=== PATIENT | male | born 1990 | race Two or more races ===

== ENCOUNTER 2019-05-16 23:13 | Emergency (ER) | payer SELFPAY ==
[~2019-05-16] VITALS: Ht 182.9 cm; Wt 80.7 kg
[2019-05-16 23:32] VITALS: BP 135/87
--- NOTE | 2019-05-16 23:32 | NUR ---
ED Nurse Note: Patient walked in due to midsternal chest pain since yesterday. As per patient, he feels pressure on his chest taht is non radiating. No stated medical history. Alert and oriented x4, verbally responsive. Breathing even and unlabored. Afebrile. VSS. S/O at bedside.
[2019-05-17] MEDS ORDERED: IBUPROFEN600 MG ORAL (00:11)
--- NOTE | 2019-05-17 00:11 | Emergency Room Report ---
History of Present Illness General Chief Complaint: Chest Pain Source: Patient Present Illness HPI This a 29-year-old male with no past medical history. He presents with complaint of chest pain. Onset for last 2 to 3 days. He had some mild pain and then went to the gym and worked out and got worse. Worse with the move. Is better now but still has some slight tenderness along the sternum area. No fever chills. Worse with movement. No cough or congestion. No fever chills but no exertional component. No diaphoresis. Allergies: Coded Allergies: Dust (Verified Allergy, Unknown, 05/16/19) Uncoded Allergies: GRASS (Allergy, Unknown, 05/16/19) Patient History Past Medical History: none, see triage record, old chart reviewed Past Surgical History: none Pertinent Family History: none Social History: Denies: smoking Immunizations: other Reviewed Nursing Documentation: PMH: Agreed; PSxH: Agreed Nursing Documentation-PMH Past Medical History: No Stated History Review of Systems Eye: Denies: eye pain, blurred vision ENT: Denies: ear pain, nose congestion, throat swelling Respiratory: Denies: cough, shortness of breath Cardiovascular: Reports: chest pain; Denies: palpitations Gastrointestinal: Denies: abdominal pain, diarrhea, nausea, vomiting Musculoskeletal: Denies: back pain, joint pain Skin: Denies: rash Neurological: Denies: headache, numbness Endocrine: Denies: increased thirst, increased urine Hematologic/Lymphatic: Denies: easy bruising All Other Systems: negative except mentioned in HPI Physical Exam Vital Signs Date Time Temp Pulse Resp B/P (MAP) Pulse Ox O2 Delivery O2 Flow Rate FiO2 05/16/19 23:30 98.2 81 18 135/87 (103) 100 Room Air Vitals normal Sp02 EP Interpretation: reviewed, normal General Appearance: well appearing, no apparent distress, alert Head: normocephalic, atraumatic Eyes: bilateral eye PERRL, bilateral eye EOMI ENT: hearing grossly normal, normal pharynx Neck: full range of motion, supple, no meningismus Respiratory: chest non-tender, lungs clear, normal breath sounds Cardiovascular #1: regular rate, rhythm, no murmur Gastrointestinal: normal bowel sounds, non tender, no mass, no organomegaly, no bruit, non-distended Musculoskeletal: back normal, gait/station normal, normal range of motion Psychiatric: mood/affect normal Medical Decision Making Diagnostic Impression: Primary Impression: Atypical chest pain ER Course Pt presents with atypical chest pain. Most likely musculoskeletal strain. No evidence of ACS, PE, dissection name a few. Will discharge home. EKG Diagnostic Results Rate: normal Rhythm: NSR ST Segments: no acute changes ASA given to the pt in ED: No Last Vital Signs Date Time Temp Pulse Resp B/P (MAP) Pulse Ox O2 Delivery O2 Flow Rate FiO2 05/16/19 23:32 72 19 05/16/19 23:32 98.2 135/87 100 Room Air Status: unchanged Disposition: HOME, SELF-CARE Condition: Stable Scripts Ibuprofen* (MOTRIN*) 600 Mg Tablet 600 MG ORAL THREE TIMES A DAY, #30 TAB 0 Refills Prov: Paco Majano MD 05/17/19 Additional Instructions: Follow-up with your doctor in 7 days. Return if symptoms worsen. Paco Majano MD May 17, 2019 00:11
[2019-05-17 00:18] VITALS: BP 135/87
--- NOTE | 2019-05-17 00:18 | NUR ---
ED Nurse Note: Pt cleared by health care Provider for discharge. DC instructions/prescription was given and explained to pt and verbalized understanding of teachings. All medical deviecs such as ID band removed. Pt is AAO x4, ambulatory and left with all personal belongings.
--- NOTE | 2019-05-18 13:06 | Cardiology Report ---
APPROVED REPORT EKG Measurement Heart [id number] Normal sinus rhythm Normal ECG
== END 2019-05-17 00:18 | disposition home or self-care (01) ==
LOC: EMR 23:37
DX: R07.89 Other chest pain (principal); Z91.048 Other nonmedicinal substance allergy status
CPT/HCPCS: 93005; 99283